=== PATIENT | female | born 1985 | race Caucasian/White ===

== ENCOUNTER → 2018-02-01 11:17 | Outpatient (CLI) | payer BC, SELFPAY | PROVIDERS: Family Provider Family Medicine; PCP Family Medicine; Visit Provider Obstetrics & Gynecology | DX: O99.89 Other specified diseases and conditions complicating pregnancy, childbirth and the puerperium (principal); R55 Syncope and collapse; R00.0 Tachycardia, unspecified; Z3A.00 Weeks of gestation of pregnancy not specified | CPT/HCPCS: 93225; 93226 ==

== ENCOUNTER → 2018-04-28 08:57 | Outpatient (CLI) | payer BC, MEDICAID, SELFPAY ==
[2018-04-28 12:21] LABS: Hematocrit 35.5 % (37-47); Hemoglobin 11.8 g/dl (12.0-15.0); Mean Corp Hgb Conc 33.2 g/gl (32-36); Mean Corpuscular Hgb 29.1 pg (27.0-32.0); Mean Corpuscular Volume 87.7 fL (81-99); Mean Platelet Vol. 10.2 fl (6.2-12.0); Platelet Count 254 K/mm3 (150-450); RBC Distribution Width CV 14.5 % (11.6-14.6); RBC Distribution Width SD 45.4 fl (35.1-43.9); Red Blood Count 4.05 M/mm3 (4.2-5.4); White Blood Count 7.3 K/mm3 (4.4-11.0)
[2018-04-28 12:28] LABS: Glucose Challenge Gest 1H 50g 142 mg/dL (70-140)
[2018-04-28 12:33] LABS: Scan Indicated on CBC? Y/N NO
[2018-05-04 09:57] LABS: HPV Reflexed? NOT INDICATED
== END ==
PROVIDERS: Visit Provider Obstetrics & Gynecology
DX: Z12.4 Encounter for screening for malignant neoplasm of cervix (principal)
CPT/HCPCS: 36415; 82950; 85027; 88175; G0145

== ENCOUNTER → 2018-05-31 06:57 | Outpatient (CLI) | payer BC, MEDICAID, SELFPAY ==
[2018-05-31 09:32] LABS: Glucose GTT-Gestation. Fasting 79 mg/dL (<105)
[2018-05-31 09:33] LABS: Glucose GTT-Gestational 1 Hr 147 mg/dL (<190)
[2018-05-31 11:02] LABS: Glucose GTT-Gestational 2 Hr 112 mg/dL (<165)
[2018-05-31 11:14] LABS: Glucose GTT-Gestational 3 Hr 65 L (<145)
== END ==
PROVIDERS: Family Provider Family Medicine; PCP Family Medicine; Visit Provider Obstetrics & Gynecology
DX: Z34.83 Encounter for supervision of other normal pregnancy, third trimester (principal); O99.810 Abnormal glucose complicating pregnancy; Z3A.00 Weeks of gestation of pregnancy not specified
CPT/HCPCS: 36415; 82951; 82952

== ENCOUNTER 2018-07-08 05:00 | Inpatient (IN) | payer MEDICAID, SELFPAY ==
[2018-07-06 09:45] VITALS: BMI 47.5
[2018-07-07 05:10] VITALS: BMI 65.2
[2018-07-08] VITALS (23 sets, daily range): BP systolic 110–141; BP diastolic 55–87; PULSE 54–94; RESP 16–20; TEMP 36.2–37.1; O2SAT 93–98
--- NOTE | 2018-07-08 | FALS_PTH ---
PATIENT: KELLE WOODWARD LOC: [facility] U#:[id number] AGE/SX: 33/F ROOM: WP004 RE07/08/[address]: Dr. Jessica Boswell MD : 1985 BED: 1 DIS: 07/09/2018 SPEC #: [id number] RECD: 07/08/18 10:33 STATUS: CRISTHIAN REDave #: [id number] DIANA: 07/08/18 00:[address]: Jessica Boswell DEPT: SURGICAL PATHOLOGY RECD BY: Mark Herrmann ENTERED: 07/08/18 10:33 SP TYPE: FALL TUBES OTHR DR: Dr. Joaquín Grewal, DO Tissues: Fallopian tube Procedures: Surgery Specimen Level II HEADER OPERATION: Tubal ligation PRE-OP DIAGNOSIS: Desires sterilization TISSUE SUBMITTED: Fallopian tubes MICROSCOPIC DIAGNOSIS Right fallopian tube, salpingectomy: Complete segment of fallopian tube with no pathologic change. Left fallopian tube, salpingectomy: Complete segment of fallopian tube with no pathologic change. AM:lenin 07/11/18 MICROSCOPIC DESCRIPTION Slides are reviewed. GROSS DESCRIPTION Received is one container labeled with the patient's name and designated bilateral fallopian tubes. Tie on right. The specimen consists of two fallopian tubes with an average length of 1.5 cm and has an average diameter of 0.6 cm. Both fallopian tubes have normal fimbriated ends. No mass lesions are identified. Bartender Helper sections are submitted in two cassettes as follows: 1 - right fallopian tube, 2 - left fallopian tube. /AM:lenin 06/28/18 TC: 5 CPT: 37258 x2
[2018-07-08] MEDS: Lactated Ringers 1,000 ML 999 ML IV (05:20)
[2018-07-08 05:49] LABS: Absolute Lymphocyte Count 2.18 X10^3/ul (0.83-4.51); Absolute Neutrophil Count 4.8 X10^3/uL (2.0-7.7); Basophil# 0.01 X10^3/uL; Basophil% 0.1 % (0-1); Eosinophil# 0.01 X10^3/uL; Eosinophils% 0.1 % (0-5); Hemoglobin 11.1 g/dl (12.0-15.0); Lymphocyte # 2.18 X10^3/ul (4.0); Lymphocyte % 28.9 % (19-41); Mean Corp Hgb Conc 31.7 g/gl (32-36); Mean Corpuscular Hgb 27.1 pg (27.0-32.0); Mean Corpuscular Volume 85.4 fL (81-99); Mean Platelet Vol. 10.3 fl (6.2-12.0); Monocyte# 0.55 X10^3/uL; Monocyte% 7.3 % (0-10); Neutrophil # 4.79 X10^3/uL (2.7-7.7); Neutrophil % 63.5 % (47-70); Platelet Count 252 K/mm3 (150-450); RBC Distribution Width CV 15.4 % (11.6-14.6); RBC Distribution Width SD 47.7 fl (35.1-43.9); White Blood Count 7.6 K/mm3 (4.4-11.0)
[2018-07-08 05:52] LABS: POSITIVE COUNT NO; POSITIVE DIFFERENTIAL NO; POSITIVE MORPHOLOGY NO
[2018-07-08 05:53] LABS: International Normalized Ratio 0.9; Prothrombin Time (Protime)PT. 12.1 SECONDS (11.7-14.9)
[2018-07-08 05:54] LABS: Partial Thromboplast Time 23.9 Seconds (24.1-36.2)
[2018-07-08] MEDS: Lactated Ringers 1,000 ML 150 ML IV (06:31)
[2018-07-08] MEDS: Sodium Citrate/Citric Acid 30 ML UDC PO (07:10)
[2018-07-08] MEDS: Lactated Ringers 1,000 ML 100 ML IV ×2 (07:31→15:47)
--- NOTE | 2018-07-08 07:42 | PCM.DCCSEC ---
Discharge Diet: No Restrictions Discharge Activity: May not drive while taking narcotic pain medications., May Shower, May Take a Tub Bath May resume sexual activity in: 4-6 weeks Lifting Restrictions: 20 pounds Additional Activity Instructions:: Nothing in the vagina for 4-6 weeks. You may return to work/school in 6 weeks. Change Dressing in (Days):: 4 Remove Dressing in (days):: 4 Cleanse incision/area with: Soap & Water, Keep Dressing Clean & Dry Additional Instructions: If you experience any of the following, contact your healthcare provider. Bleeding that soaks a pad every hour for 2 hours Fever 100.4 or higher Unrelieved incision or abdominal pain Swelling, redness, discharge or bleeding from your incision Problems urinating (including inability to urinate or burning while urinating). Visual changes Severe headache Flu-like symptoms Pain or redness in one of both of your breasts Pain, warmth, tenderness or swelling in your legs, especially the calf area Frequent nausea and vomiting Symptoms of depression or anxiety If you experience any of the following, call 911 or go to the nearest Emergency Room. Chest pain Problems breathing Seizure activity Partial or complete paralysis of a body part, slurred speech, weakness or drooping of the face, or a sudden inability to walk or hold your balance Allergies/Adverse Reactions: Allergies hydrocodone bitartrate [From Vicodin] Allergy (Verified 07/17/14 11:06) Rash Medications to take at Discharge Cetirizine HCl [Zyrtec] 10 mg PO DAILY 04/15/14 Vits [Prenatabs FA ] 1 tablet PO DAILY 04/15/14 Amoxicillin 875 mg PO BID 07/06/18 Docusate Sodium [Colace] 100 mg PO BID PRN PRN #30 cap 07/08/18 Naproxen [Naprosyn] 250 - 500 mg PO BID PRN PRN 7 Days #28 tab 07/08/18 Oxycodone [Oxyir] 5 - 10 mg PO Q6H PRN PRN 7 Days #28 tab 07/08/18 The following prescriptions were given: Oxycodone [Oxyir] 5 - 10 mg PO Q6H PRN PRN 7 Days #28 tab PRN Reason: Mod-Severe Pain (-08/24) Docusate Sodium [Colace] 100 mg PO BID PRN PRN #30 cap PRN Reason: Constipation Naproxen [Naprosyn] 250 - 500 mg PO BID PRN PRN 7 Days #28 tab PRN Reason: Mod-Severe Pain (4-08/24) Follow-Up: Call to make an appointment with your doctor for an incision check in 1-2 weeks. You will also need a 6 week post- follow up appointment. Test results from this visit will be discussed in further detail at your follow-up appointment, if applicable. Please Follow Up With: Jessica Boswell MD - [phone] When: Call to make an appointment for an incision check in 2 weeks. Primary Care Physician: Joaquín Grewal DO [Primary Care Provider] - Proposed Discharge Date: 07/10/18
[2018-07-08] MEDS: Oxytocin 30 units/NS 500 ml 30 UNITS/500 ML IV.SOLN 167 UNITS IV (08:03)
[2018-07-08 10:04] LABS: Pathology Specimen OB SEE PATHOLOGY REPORT
[2018-07-08] MEDS: proMETHazine 25 MG/ML Syringe 12.5 MG IV (10:50)
--- NOTE | 2018-07-08 12:37 | PCM.OP.BLANK ---
Operative Report Date of Procedure: 07/08/18 PROCEDURE: Repeat C section. Bilateral partial salpingectomy Preoperative diagnosis: 39 wk EGA Prior C section, planned repeat C section Sterilization request Postop diagnosis: 39 wk EGA Prior C section, planned repeat C section Sterilization request Anesthesia: Diaan, Ingrid Mendoza CRNA and Dr. Bassett Surgeon: Jessica Boswell MD Client Services Vice President: MADDY Brantley EBL 600 cc Complications: none Drains: Grant draining clear yellow appearing urine Fluids: replacement LR Findings: At amniotomy, clear fluid was noted. Cobb viable female in vertex presentation. Apgars 8/9, Baby weight: 8# 13 oz There was a normal appearing uterus, fallopian tubes and ovaries bilaterally. There was a cord around the neck times one, reduced at delivery. The anterior shoulder delivered first, followed by posterior shoulder. PATH: Routine cord gases were sent. Narrative account: After the risks, benefits and alternatives of the procedure were reviewed with the patient, informed consent was obtained. The patient was taken to the Operating room with an IV running, and placed in a seated position on the operating table for placement of the spinal. Once the spinal had been administered, she was briefly frog-legged for Grant catheter placement, and then repositioned to dorsal supine position with leftward displacement of the uterus. The tissue retention straps were placed to expose the lower abdomen beneath the pannus. She was then prepped and draped in the usual sterile fashion. Once the spinal was deemed adequate, a Pfannenstiel skin incision was created using the knife (through the prior skin incision scar). The incision was carried down to the rectus fascia using the knife. The fascia was nicked in the midline. The fascial incision was extended bilaterally using curved Youngblood scissors. The superior aspect of the fascial incision was grasped with Francesca clamps and tented up and the underlying rectus abdominal muscles were dissected free. In a similar manner, the inferior aspect of the facial incision was grasped with Francesca clamps tented up and the underlying rectus abdominal muscles were dissected free. The rectus abdominis muscles were in the midline and the peritoneum was identified and entered by blunt dissection high in the incision. The peritoneum was stretched laterally and a bladder blade was inserted. The uterine incision was then created using Metzenbaum scissors. The operators fingertips were used to extend the uterine incision by blunt dissection in a caudad- cephalad orientation . Clear fluid was noted at amniotomy. The vertex was then delivered atraumatically through the incision. The OP and nares were bulb suctioned on the abdomen. The shoulders delivered easily . The cord clamped x two and cut. And the was handed off to the nurse awaiting delivery after briefly showing him to his parents. The baby had a spontaneous, vigorous cry. The placenta was then delivered. The uterus was exteriorized and cleared of clots and debris . The uterine incision was repaired with 1 Vicryl in a running locked fashion. A horizontal mattress stitch of 1 Vicryl was used to oversew the R uterine angle for hemostasis. Bovie cautery was used to treat any bleeding areas . Excellent hemostasis was noted. The R fallopian tube was grasped with a Fouzia clamp at a relatively avascular midportion. Bovie cautery was used to create a defect in the mesosalpinx. The proximal and distal ends of the fallopian tube at the the mesosalpinx window were then free tied with 2-0 Catgut. A knuckle of the fallopian tube was then tented up and and additional tie was placed inferior to both ligatures placed. A segment of the R fallopian tube was then excised using Metzenbaum scissors. The stumps of the fallopian tube were then Bovie cauterized. excellent hemostasis was noted. The L fallopian tube partial salpingectomy was then performed in a similar manner. The tubal segments were set aside for later pathology review. The uterine fallopian tubes and ovaries were inspected and then returned to the abdominal cavity. The gutters were cleared of clots and debris and the incision at the uterus was inspected. Miguelina was applied along the entire incision for continued hemostasis. Excellent hemostasis was noted. The peritoneal edges and rectus abdominis muscles were reapproximated in the midline with a series of interrupted vertical mattress stitches of 1 Vicryl. Excellent hemostasis was noted at the subfascial space Miguelina was dusted over this layer as well. The fascia was closed in a running nonlocked fashion with a Stratofix. The Subcutaneous fatty tissue was Bovie cauterized as needed for hemostasis. Miguelina was liberally dusted at this layer to prevent seroma formation. This layer was then reapproximated in a single layer closure of 3-0 Vicryl in a running nonlocked fashion, to eliminate space. The skin edges were closed in a Subcuticular stitch of 4-0 Monocryl. The incision was cleansed. Cavilon, Steristrips, and Mepilex dressing were applied to the skin . The patient was then transferred to the recovery room bed in stable condition after tolerating the procedure well. Sponge, lap, needle and instrument counts correct times two. Medications given preop and intraoperatively included: Ancef 3 gm given successfactors consultant to the operating room. The patient also received Pitocin given IV after cord clamp, and Toradol 30 mg IV times one. For a complete listing of medications given preop and intraoperatively, please see the anesthesia record.
[2018-07-08] MEDS: Ketorolac 30 MG/ML Syringe IV ×2 (15:10→21:36)
[2018-07-08] MEDS: AMOXICILLIN 875 MG TABLET PO (21:36)
[2018-07-09] VITALS (8 sets, daily range): BP systolic 114–143; BP diastolic 57–74; PULSE 74–84; RESP 18; TEMP 36.6–36.9; O2SAT 95–98
[2018-07-09] MEDS: 0.9% Saline Lock 10 ML Syringe IV ×3 (01:00→16:25)
[2018-07-09] MEDS: Ketorolac 30 MG/ML Syringe IV ×3 (03:30→16:25)
[2018-07-09 05:20] LABS: Hematocrit 27.6 % (37-47); Hemoglobin 8.6 g/dl (12.0-15.0); Mean Corp Hgb Conc 31.2 g/gl (32-36); Mean Corpuscular Hgb 26.8 pg (27.0-32.0); Mean Platelet Vol. 10.1 fl (6.2-12.0); Platelet Count 194 K/mm3 (150-450); RBC Distribution Width CV 15.3 % (11.6-14.6); Red Blood Count 3.21 M/mm3 (4.2-5.4); Scan Indicated on CBC? Y/N NO; White Blood Count 9.4 K/mm3 (4.4-11.0)
[2018-07-09] MEDS: AMOXICILLIN 875 MG TABLET PO (09:29)
[2018-07-09] MEDS: Loratadine 10 MG Tablet PO (09:30)
[2018-07-09] MEDS: Prenatal Vits Tablet 1 TABLET PO (09:30)
--- NOTE | 2018-07-09 09:31 | PCM.PN.OB ---
Subjective: Patient without complaints. Tolerating diet well. Positive flatus. Pain well controlled. Would like to go home later today if baby is able to go. - Physical Exam Vital Signs AF, VSS Temp Pulse Resp BP Pulse Ox 98.2 F 74 18 114/57 L 96 07/09/18 04:00 07/09/18 05:00 07/09/18 05:00 07/09/18 04:00 07/09/18 05:00 Oxygen Delivery Method Room Air Weight: 291 lb 0.163 oz Body Mass Index (BMI) 65.2 Intake and Output for Last 24 Hours 07/07/18 07/08/18 07/09/18 23:59 23:59 23:59 Intake Total 1700 / 1700 3126 / 3126 Output Total 700 / 700 850 / 850 Balance 1000 / 1000 2276 / 2276 Laboratory Tests Past 24 Hrs 07/09/18 05:05 WBC 9.4 RBC 3.21 L Hgb 8.6 L Hct 27.6 L MCV 86.0 MCH 26.8 L MCHC 31.2 L RDW 15.3 H RDW Differential 48.0 H Plt Count 194 MPV 10.1 Wound is clean, dry, intact with Mepilex in place. Good urine output. Hemoglobin okay. Medical Necessity - Tobacco Use Smoking Status: Never smoker Assessment/Plan Doing well postoperative day #1 status post repeat . Continuing present care. Home-going instructions given should patient desire to be released later today if baby is able to go home.
[2018-07-09] MEDS: Ferrous Sulfate 325 MG Tablet PO (16:25)
== END 2018-07-09 19:15 | disposition home or self-care (01) | DRG 766 ==
PROVIDERS: Admitting Provider Obstetrics & Gynecology; Family Provider Family Medicine; PCP Family Medicine; Visit Provider Obstetrics & Gynecology
PROC: 10D00Z1 Extraction of Products of Conception, Low, Open Approach (ICD-10-PCS; CPT 59514; principal; 2018-07-08 07:15)
DX: O34.211 Maternal care for low transverse scar from previous cesarean delivery (principal); Z37.0 Single live birth; Z30.2 Encounter for sterilization; O69.81X0 Labor and delivery complicated by cord around neck, without compression, not applicable or unspecified; Z14.1 Cystic fibrosis carrier; Z3A.39 39 weeks gestation of pregnancy
CPT/HCPCS: 85025; 85027; 85610; 85730; 86850; 86900; 88302; 99218; J7120; A4216; G0378; J2405

== ENCOUNTER 2018-07-12 15:55 | Outpatient (CLI) | payer MEDICAID, SELFPAY | END 2018-07-12 16:45 | disposition home or self-care (01) | LOC: WPOUT 16:08 → WP 16:09 | PROVIDERS: Family Provider Family Medicine; PCP Family Medicine; Visit Provider Obstetrics & Gynecology | DX: R63.3 Feeding difficulties (principal) | CPT/HCPCS: 96152 ==

== ENCOUNTER → 2018-09-08 14:12 | Outpatient (CLI) | payer BC, MEDICAID, SELFPAY ==
[2018-09-14 10:33] LABS: HPV Reflexed? NOT INDICATED
== END ==
PROVIDERS: Visit Provider Obstetrics & Gynecology
DX: R87.613 High grade squamous intraepithelial lesion on cytologic smear of cervix (HGSIL) (principal)
CPT/HCPCS: 88175; G0145